=== PATIENT | female | born 1950 | race Caucasian/White ===

== ENCOUNTER → 2017-04-29 | Outpatient (CLI) | payer MEDICARE, OTHER ==
[~2017-04-29] MED LIST: ACIDOPHILUS PRO1 CAP PO; ADVIL200 MG PO; ANTIBIOTIC UNKNOWN; ASPIRIN 32325 MG/TAB PO; CIPRO 500MG TA500 MG PO; CLARITIN 1010 MG/TAB PO; COLACE 100100 MG/CAP PO; FLAGYL 250250 MG/TAB PO; LIPITOR 10MG10 MG PO; LIPITOR20 MG PO; MULTIPLE VITAMI1 CAP PO; MULTIPLE VITAMI1 CTB PO; NORCO 325 MG-51 TAB; PEPCID 20MG TAB20 MG PO; PRINZIDE 12.5 M1 TA1 PO
== END ==
LOC: MC.RAD 10:33
DX: Z12.31 Encounter for screening mammogram for malignant neoplasm of breast (principal)

== ENCOUNTER → 2018-02-01 | Outpatient (CLI) | payer MEDICARE, OTHER | LOC: COL.RAD 13:08 | DX: K57.32 Diverticulitis of large intestine without perforation or abscess without bleeding (principal) | CPT/HCPCS: Q9967 ==

== ENCOUNTER → 2018-06-12 | Outpatient (CLI) | payer MEDICARE, OTHER ==
[~2018-06-12] MED LIST changes: +GLUCOPHAGE XR500 M1 PO; +HYZAAR 50-12.1 UDTAB PO
== END ==
LOC: MC.RAD 07:43
DX: Z12.31 Encounter for screening mammogram for malignant neoplasm of breast (principal)

== ENCOUNTER → 2019-06-14 | Outpatient (CLI) | payer MEDICARE, OTHER | LOC: MC.RAD 08:17 | DX: Z12.31 Encounter for screening mammogram for malignant neoplasm of breast (principal) ==

== ENCOUNTER → 2019-10-29 | Outpatient (CLI) | payer MEDICARE, OTHER ==
[2019-10-29 12:13] LABS: BASO % 0.2 % (0.0-2.0); EOS # 0.3 (0.0-0.7); EOS % 1.9 % (0-4.0); GRAN # 9.1 (1.4-6.5); GRAN % 69.1 % (42.2-75.2); HEMATOCRIT 46.2 % (37.0-47.0); HEMOGLOBIN 15.7 g/dl (12.5-16.0); LYMPH # 2.9 (1.2-3.4); LYMPH % 21.6 % (20.0-51.0); MEAN CELL VOLUME 94 fl (80.0-100.0); MEAN CORPUSCULAR HEMOGLOBIN 32 pg (27.0-31.0); MEAN CORPUSCULAR HGB CONC 34 g/dl (33.0-37.0); MEAN PLATELET VOLUME 10.1 fl (7.4-10.4); MONO # 0.9 (0.1-0.6); MONO % 6.8 % (1.7-9.3); PLATELET COUNT 280 K/mm3 (130-400); RED BLOOD COUNT 4.93 M/mm3 (4.10-5.30); REDCELL DISTRIBUTION WIDTH-CV 13.4 % (11.5-14.5)
[2019-10-29 12:24] LABS: ALBUMIN 4.2 gm/dL (3.5-5.0); BILIRUBIN,TOTAL 0.6 mg/dL (0.0-1.0); CALCIUM 10.3 mg/dL (8.4-10.2); CREATININE, serum 0.8 (0.52-1.25); POTASSIUM 4.4 mmol/L (3.4-5.0); TOTAL PROTEIN 7.6 gm/dL (6.4-8.2)
== END ==
LOC: ZCOL.LAB 11:34 → COL.RAD 11:34 → COL.LAB 11:34
PROVIDERS: Family Medicine
DX: K57.30 Diverticulosis of large intestine without perforation or abscess without bleeding (principal); Z90.710 Acquired absence of both cervix and uterus
CPT/HCPCS: Q9967

== ENCOUNTER → 2019-11-01 | Outpatient (CLI) | payer MEDICARE, OTHER ==
[2019-11-01 09:22] LABS: BASO # 0.1 (0.0-0.2); BASO % 0.7 % (0.0-2.0); EOS # 0.2 (0.0-0.7); EOS % 2.5 % (0-4.0); GRAN # 4.8 (1.4-6.5); GRAN % 59.1 % (42.2-75.2); HEMATOCRIT 42.8 % (37.0-47.0); HEMOGLOBIN 14.3 g/dl (12.5-16.0); LYMPH # 2.2 (1.2-3.4); LYMPH % 26.7 % (20.0-51.0); MEAN CELL VOLUME 94 fl (80.0-100.0); MEAN CORPUSCULAR HEMOGLOBIN 31 pg (27.0-31.0); MEAN CORPUSCULAR HGB CONC 33 g/dl (33.0-37.0); MEAN PLATELET VOLUME 10.2 fl (7.4-10.4); MONO # 0.9 (0.1-0.6); MONO % 10.5 % (1.7-9.3); PLATELET COUNT 235 K/mm3 (130-400); RED BLOOD COUNT 4.55 M/mm3 (4.10-5.30); REDCELL DISTRIBUTION WIDTH-CV 13.3 % (11.5-14.5)
== END ==
LOC: COL.LAB 09:00
PROVIDERS: Internal Medicine
DX: R10.32 Left lower quadrant pain (principal)

== ENCOUNTER → 2020-01-07 | Outpatient (CLI) | payer MEDICARE, OTHER | LOC: COL.VAS 12:42 | DX: M79.604 Pain in right leg (principal); M79.89 Other specified soft tissue disorders; Z96.651 Presence of right artificial knee joint ==

== ENCOUNTER 2020-05-01 15:25 | Emergency (ER) | payer MEDICARE, OTHER ==
[~2020-05-01] VITALS: Ht 154.9 cm; Wt 100.0 kg
[2020-05-01 15:33] VITALS: BP 134/82
[2020-05-01] MEDS ORDERED: NORCO 325 MG-7.1 TAB PO (17:27)
[2020-05-01 18:17] VITALS: PULSE 98
== END 2020-05-01 18:00 | disposition home or self-care (01) ==
LOC: COL.ER 15:25
DX: S42.301A Unspecified fracture of shaft of humerus, right arm, initial encounter for closed fracture (principal); I10 Essential (primary) hypertension; E11.9 Type 2 diabetes mellitus without complications; Z90.710 Acquired absence of both cervix and uterus; Z88.5 Allergy status to narcotic agent; Z79.84 Long term (current) use of oral hypoglycemic drugs; Y92.009 Unspecified place in unspecified non-institutional (private) residence as the place of occurrence of the external cause; W01.0XXA Fall on same level from slipping, tripping and stumbling without subsequent striking against object, initial encounter
CPT/HCPCS: J1885; J2060; J3010

== ENCOUNTER → 2020-06-05 | Outpatient (CLI) | payer MEDICARE, OTHER ==
[~2020-06-05] MED LIST changes: +NORCO 325 MG-7.1 TAB PO
== END ==
LOC: COL.VAS 12:04
DX: I51.7 Cardiomegaly (principal); I34.0 Nonrheumatic mitral (valve) insufficiency; E87.70 Fluid overload, unspecified; I10 Essential (primary) hypertension

== ENCOUNTER 2020-10-13 08:21 | Day surgery (SDC) | payer MEDICARE, OTHER ==
[~2020-10-13] VITALS: Ht 155 cm; Wt 101.7 kg
[2020-10-13] VITALS (10 sets, daily range): BP systolic 115–150; BP diastolic 58–78; PULSE 55–67; TEMP 98
[2020-10-13 09:12] LABS: HEMATOCRIT 42.1 % (37.0-47.0); HEMOGLOBIN 14.1 g/dl (12.5-16.0); MEAN CELL VOLUME 91 fl (80.0-100.0); MEAN CORPUSCULAR HEMOGLOBIN 31 pg (27.0-31.0); MEAN CORPUSCULAR HGB CONC 34 g/dl (33.0-37.0); MEAN PLATELET VOLUME 10.5 fl (7.4-10.4); PLATELET COUNT 248 K/mm3 (130-400); RED BLOOD COUNT 4.63 M/mm3 (4.10-5.30); REDCELL DISTRIBUTION WIDTH-CV 13.5 % (11.5-14.5)
[2020-10-13 09:13] LABS: PROTHROMBIN TIME 11.3 SECONDS (9.7-12.8)
[2020-10-13 09:15] LABS: PARTIAL THROMBOPLASTIN TIME 32.5 SECONDS (26.0-37.0)
[2020-10-13 09:20] LABS: CALCIUM 9.9 mg/dL (8.4-10.2); CREATININE, serum 0.78 (0.52-1.25)
[2020-10-13] MEDS ORDERED: TOPROL XL100 MG PO (09:24)
[2020-10-13] MEDS ORDERED: JANUVIA 100MG100 MG PO (09:24)
[2020-10-13] MEDS ORDERED: ASPIRIN 81M81 MG/TA2 PO (09:25)
[2020-10-13] MEDS ORDERED: CRESTOR 10MG10 MG PO (09:25)
[2020-10-13] MEDS ORDERED: PROBIOTIC-MAJOR PO (09:26)
[2020-10-13] MEDS ORDERED: COLACE 100100 MG/CAP PO (09:26)
[2020-10-13] MEDS ORDERED: MASON NATURAL2000 IU PO (09:27)
[2020-10-13] MEDS ORDERED: ALOE VERA CONCE1 CAP PO (09:27)
[2020-10-13] MEDS ORDERED: BENADRYL25 M2 PO (09:28)
[2020-10-13] MEDS ORDERED: LUTEIN20 M1 PO (09:28)
[2020-10-13] MEDS ORDERED: ZYRTEC 10MG10 MG PO (09:30)
[2020-10-13] MEDS ORDERED: THE MEDICINE S200 M2 PO (09:30)
[2020-10-13] MEDS ORDERED: MULTIPLE VITAMI1 TA5 PO (09:31)
--- NOTE | 2020-10-13 12:02 | NUR ---
Report from Emmy AGUILAR. Transferred from [facility] by bed. VSS. Right Tband with 16 cc air, CD&I, good pulses and cap refill < 3 secs noted. bedside
--- NOTE | 2020-10-13 14:32 | NUR ---
16 cc air released from right Tband and dressing applied. INT discontinued intact. Pt getting dressed.
--- NOTE | 2020-10-13 14:52 | NUR ---
Discharge instructions given. Transferred to private car by [facility]
== END 2020-10-13 14:50 | disposition home or self-care (01) ==
LOC: COL.CAR 08:21
PROVIDERS: Internal Medicine Cardiovascular Disease
DX: I25.10 Atherosclerotic heart disease of native coronary artery without angina pectoris (principal); I10 Essential (primary) hypertension; E03.9 Hypothyroidism, unspecified; G47.33 Obstructive sleep apnea (adult) (pediatric); E11.9 Type 2 diabetes mellitus without complications; Z79.82 Long term (current) use of aspirin; Z79.84 Long term (current) use of oral hypoglycemic drugs; Z79.899 Other long term (current) drug therapy
CPT/HCPCS: C1769; J1644; J2250; J3010

== ENCOUNTER → 2021-04-03 | Outpatient (CLI) | payer MEDICARE, OTHER ==
[~2021-04-03] MED LIST changes: +ALOE VERA CONCE1 CAP PO; +ASPIRIN 81M81 MG/TA2 PO; +BENADRYL25 M2 PO; +CRESTOR 10MG10 MG PO; +JANUVIA 100MG100 MG PO; +LUTEIN20 M1 PO; +MASON NATURAL2000 IU PO; +MULTIPLE VITAMI1 TA5 PO; +PROBIOTIC-MAJOR PO; +THE MEDICINE S200 M2 PO; +TOPROL XL100 MG PO; +ZYRTEC 10MG10 MG PO
== END ==
LOC: ZCOL.LAB 14:28
DX: Z20.822 Contact with and (suspected) exposure to COVID-19 (principal)

== ENCOUNTER → 2021-04-23 | Outpatient (CLI) | payer MEDICARE, OTHER | LOC: ZCOL.LAB 16:22 | DX: Z20.822 Contact with and (suspected) exposure to COVID-19 (principal) ==

== ENCOUNTER → 2021-05-28 | Outpatient (CLI) | payer MEDICARE, OTHER ==
[2021-05-28 14:19] LABS: BASO % 0.5 % (0.0-2.0); EOS # 0.1 K/mm3 (0.0-0.7); EOS % 0.9 % (0.0-4.0); GRAN # 3.9 K/mm3 (1.4-6.5); GRAN % 61.8 % (42.2-75.2); HEMATOCRIT 41.1 % (37.0-47.0); HEMOGLOBIN 13.9 g/dl (12.5-16.0); LYMPH # 1.6 K/mm3 (1.2-3.4); LYMPH % 25.5 % (20.0-51.0); MEAN CELL VOLUME 91 fl (80.0-100.0); MEAN CORPUSCULAR HEMOGLOBIN 31 pg (27-31); MEAN CORPUSCULAR HGB CONC 34 g/dl (33.0-37.0); MEAN PLATELET VOLUME 9.8 fl (7.4-10.4); MONO # 0.7 K/mm3 (0.1-0.6); PLATELET COUNT 240 K/mm3 (130-400); REDCELL DISTRIBUTION WIDTH-CV 13.1 % (11.5-14.5)
[2021-05-28 14:38] LABS: BILIRUBIN,TOTAL 0.6 mg/dL (0.2-1.2); C-REACTIVE PROTEIN 0.16 mg/dL (0.00-0.50); CALCIUM 9.7 mg/dL (8.4-10.2); CREATININE, serum 0.81 mg/dL (0.57-1.11); POTASSIUM 3.8 mmol/L (3.5-4.5); TOTAL PROTEIN 7.3 gm/dL (6.2-8.1)
== END ==
LOC: COL.RAD 08:00
PROVIDERS: Internal Medicine
DX: K57.30 Diverticulosis of large intestine without perforation or abscess without bleeding (principal); K76.0 Fatty (change of) liver, not elsewhere classified
CPT/HCPCS: Q9967

== ENCOUNTER → 2021-08-04 | Outpatient (CLI) | payer MEDICARE, OTHER | LOC: MC.RAD 10:11 | DX: Z12.31 Encounter for screening mammogram for malignant neoplasm of breast (principal) ==